=== PATIENT | male | born 1955 | race Two or more races ===

== ENCOUNTER 2019-11-16 01:25 | Inpatient (IN) | payer BC, OTHER ==
[~2019-11-16] VITALS: Ht 185.4 cm; Wt 75.7 kg
[2019-11-16] MEDS ORDERED: DOXE10CA2 PO (01:38)
[2019-11-16] MEDS ORDERED: DIAZ10TA4 PO (01:38)
[2019-11-16] MEDS ORDERED: DIPH1TAB PO (01:39)
[2019-11-16] MEDS ORDERED: TEMA30CA PO (01:40)
--- NOTE | 2019-11-16 01:43 | NUR ---
GUILLERMINA 5150 IS IN THE CHART.
--- NOTE | 2019-11-16 01:43 | NUR ---
PT BIB BY HIS SON WITH A C/O OF SI ATTEMPT. PT IS ON A 5150 HOLD OF 212911/15/2019. 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 PT STATED THAT HE TOOK 25 PILLS AND VODKA. ACCORDNING TO THE HOLD. PT HAS ATTEMPTED THIS BEFORE. 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 PT HAS BEEN RETIRED FOR SOME TIME. PT'S SON IS AT THE BEDSIDE. PT WAS CHANGED INTO A GOWN AND ALL PERSONAL BELONGINGS WERE PLACED IN BELONGING BAGS IN THE NURSE'S STATION. PT REC'D WARM BLANKETS AND APPEARS TO BE CALM AND COOPERATIVE. ASHLEIGH DOCKERY/JAVIER IS AT THE BEDSIDE.
--- NOTE | 2019-11-16 01:43 | NUR ---
URINE SAMPLE OBTAINED AND SENT TO LAB. GLAUCOMA SPECIALIST IS AT THE BEDSIDE AND IS DRAWING THE LABS.
--- NOTE | 2019-11-16 01:50 | NUR ---
EKG IN PROGRESS AT THE BEDSIDE.
[2019-11-16 01:54] LABS: BASOPHILS # (AUTO) 0.3 /CMM (0.0-0.2); BASOPHILS % (AUTO) 1.8 % (0.0-2.0); HEMATOCRIT 46 % (39-51); HEMOGLOBIN 15.2 g/dL (13.5-17.5); LYMPHOCYTES # (AUTO) 3.3 /CMM (0.8-4.8); LYMPHOCYTES % (AUTO) 23.2 % (20.0-44.0); MEAN CORPUSCULAR HGB CONC 33 g/dl (31.0-36.0); MEAN CORPUSCULAR VOLUME 93 fL (80-96); MONOCYTES # (AUTO) 1.3 /CMM (0.1-1.30); MONOCYTES % (AUTO) 9.2 % (2.0-12.0); NEUTROPHILS # (AUTO) 9.2 /CMM (1.8-8.9); NEUTROPHILS % (AUTO) 64.8 % (43.0-81.0); PLATELET COUNT (AUTO) 414 /CMM (150-450); RED BLOOD CELL COUNT(AUTO) 4.91 MIL/uL (4.5-6.0); WHITE BLOOD COUNT (AUTO) 14.2 K/uL (4.3-11.0)
--- NOTE | 2019-11-16 01:54 | NUR ---
PT REC'D A CUP OF WATER AND HAS A CHICKEN SANDWICH THAT HIS SON BROUGHT. PT IS TOLERATING PO WELL.
[2019-11-16 01:57] LABS: APPEARANCE,URINE Clear (CLEAR); BILIRUBIN,URINE SMALL (NEGATIVE); BLOOD, URINE Negative Ery/uL (NEGATIVE); COLOR,URINE Yellow (YELLOW); KETONES,URINE Negative (NEGATIVE); LEUKOCYTE ESTERASE ,URINE Negative (NEGATIVE); NITRITE, URINE Negative (NEGATIVE); PH,URINE 5.5 (5.0-8.0); PROTEIN,URINE 30 mg/dl (NEGATIVE); UGLUCOSE Negative (NEGATIVE); UROBILINOGEN,URINE 0.2 EU/dL (0.2)
[2019-11-16 02:01] LABS: CALCIUM, SERUM 8.5 mg/dL (8.5-10.1); CARBON DIOXIDE 26 mmol/L (21-32); CHLORIDE 108 mmol/L (98-107); CREATININE 2.9 mg/dL (0.6-1.3); GLUCOSE 103 mg/dL (74-106); POTASSIUM 4.2 mmol/L (3.5-5.1); SODIUM SERUM 146 mmol/L (136-145); UREA NITROGEN, BLOOD 41 mg/dL (7-18)
[2019-11-16] MEDS ORDERED: TEMA15CA PO (02:03)
[2019-11-16] MEDS ORDERED: OXYC-132 PO (02:03)
[2019-11-16] MEDS ORDERED: FLUO20CA42 PO (02:03)
[2019-11-16] MEDS ORDERED: DOCU-270 PO (02:03)
[2019-11-16] MEDS ORDERED: HYDR-500 PO (02:03)
[2019-11-16 02:07] LABS: ACETAMINOPHEN 0 ug/ml (10-30); ALANINE AMINOTRANSFERASE 15 U/L (12-78); ALBUMIN 3.8 g/dL (3.4-5.0); ALCOHOL, BLOOD < 3 mg/dL (0-0); ALKALINE PHOSPHATASE 52 U/L (46-116); ASPARTATE AMINOTRANSFERASE 32 U/L (15-37); BILIRUBIN,DIRECT 0.2 mg/dL (0.0-0.2); BILIRUBIN,TOTAL 0.8 mg/dL (0.2-1.0); SALICYLATE 6.2 mg/dL (2.8-20.0); TOTAL PROTEIN, SERUM 8.1 g/dL (6.4-8.2)
[2019-11-16 02:15] LABS: BACTERIA,URINE Few /HPF (None Seen); RBC,URINE 0-2 /HPF (0-2); SQUAMOUS EPITHELIAL CELL,UR Few /HPF (None Seen)
--- NOTE | 2019-11-16 02:28 | NUR ---
CALLED [facility] RE: CXR READ. SYSTEM IS DOWN FOR ANOTHER 10 MINS AND THEN THEY WILL BE ABLE TO UPLOAD THE CXR TO THE HOTLINE. NOTIFIED.
--- NOTE | 2019-11-16 02:30 | NUR ---
DR ESPARZA IS AT THE BEDSIDE SPEAKING TO THE PT AND HIS SON.
--- NOTE | 2019-11-16 02:50 | NUR ---
CALLING REPORT TO TRACEE LUND RN. ANDERSON TAVERA
--- NOTE | 2019-11-16 02:51 | NUR ---
REPORT TO ANDERSON CHARLES
[2019-11-16] MEDS ORDERED: ACETAMINOPHEN 325 MG TABLET PO PRN (04:00)
[2019-11-16] MEDS ORDERED: TEMAZEPAM 7.5 MG CAPSULE PO PRN (04:00)
[2019-11-16] MEDS ORDERED: MAG HYDROX/AL HYDROX/SIMETH 30 ML UDC PO PRN (04:00)
[2019-11-16] MEDS ORDERED: BLOOD SUGAR DIAGNOSTIC 1 EACH STRIP IN ONE (04:00)
[2019-11-16] MEDS ORDERED: MAGNESIUM HYDROXIDE 30 ML UDC PO PRN (04:00)
[2019-11-16 04:07] VITALS: BP 130/66
--- NOTE | 2019-11-16 04:56 | NUR ---
GPS SENIOR DATA MODELER NOTES: ADMITTED 64 Y/O MALE. PT ADMITTED FROM ER UNIT TO GPS UNIT ON A 5150. PER HOLD PT CONFESSED TO HAVE ATTEMPTED SUICIDE LAST NIGHT BY TAKING 25 PILLS OF TEMAZEPAM WITH A PINT OF VODKA. EX FOUND A BOTTLE OF VODKA AND MEDICATION EMPTY BOTTLE. A RELAPSE OF 15 YEARS. UPON FACE TO FACE ASSESSMENT PT IS A/ O X3-4, COOPERATIVE, ANXIOUS, COMPLIANT, SARCASTIC, BLUNT, DEPRESSED, RESERVED, GUARDED, AND IN DENIAL . PT STATED, " IM HERE BECAUSE I COULDN'T SLEEP. ITS INSOMNIA. " PT ELAINE SI AND HI AT THIS TIME. PT SIGNED ALL CONSENT PAPERS. ENVIRONMENTAL SAFETY CHECK Q15MIN. ENCOURAGE PT TO VERBALIZE FEELINGS AND CONCERNS. ORIENTED TO THE UNIT. BELONGING AND CONTRABAND WERE DONE AND CHECKED. NURSING ASSESSMENT DONE. ABLE TO ASSESS PT BODY AND SKIN WITH NOTED SACRAL REDNESS AND FOREHEAD REDNESS. PHOTO TAKEN AND WOUND CONSULT ORDERED. TOOK PICTURE OF PT FACE FOR IDENTIFICATION AND PUT IN CHART. PT RIGHTS DISCUSS BY SUPERVISOR BEATER ROOM. PROVIDED PT WITH HANDBOOK AND MED GUIDE. TOOK PTS INITIAL BLOOD SUGAR. VITALS TAKEN ANS WNL. NO S/S OF RESP DISTRESS. BREATHING EVEN AND UNLABORED. CONTINUE TO MONITOR.
--- NOTE | 2019-11-16 05:31 | NUR ---
GPS RN NOTES: REFUSED NICOTINE PATCH ORDER ASKED PT IF HE HAS SMOKED. PT STATED, "YES". OFFERED PT NICOTINE PATCH ORDER FOR SMOKING CESSATION. PT REFUSED ORDER. PT STATED, "I WANT TO TRY NOT SMOKING MYSELF FOR NOW. " EXPLAINED RISKS AND BENEFITS. PT STILL REFUSED X3. CONTINUE TO MONITOR.
--- NOTE | 2019-11-16 06:24 | NUR ---
GPS RN NOTES: SON NO ANSWER CALLED PT SON VITOR TO . NO ANSWER AND VOICE MAIL IS FULL TO LEAVE MESSAGE. WILL ENDORSE TO DAY SHIFT TO F/U. CONTINUE TO MONITOR.
--- NOTE | 2019-11-16 06:35 | NUR ---
GPS RN NOTES: INFORMED DR OF ADMISSION NOTIFIED DR VILLAFANA REGARDING PTS ADMISSION. INFORMING IF TO CONTINUE STANDING ORDERS. PER , TO HOLD TEMAZEPAM UNTIL HE ASSESS PT. WILL ENDORSE TO DAY SHIFT FOR MED RECONCILIATION. CONTINUE TO MONITOR.
[2019-11-16 08:00] VITALS: BP 157/99
[2019-11-16] MEDS ORDERED: DOCUSATE SODIUM 100 MG CAPSULE PO PRN (09:00)
[2019-11-16] MEDS ORDERED: DIPHENOXYLATE HCL/ATROP SULF 1 UDTAB TABLET PO PRN (09:00)
[2019-11-16] MEDS: NICOTINE PATCH (14MG) 14 MG PATCH.TD24 TD SCH (10:00)
[2019-11-16] MEDS: oxyCODONE/APAP (5/325 MG) 1 UDTAB TABLET PO PRN ×2 (10:00→20:33)
--- NOTE | 2019-11-16 10:01 | NUR ---
GPS/RN-NOTES PATIENT C/O 02/14 LEFT AND RIGHT HIP. PERCOCET 5/325MG 1 TAB. P.O GIVEN PRN ORDER. WILL CONT. MONITORING FOR SAFETY .
--- NOTE | 2019-11-16 10:30 | NUR ---
GPS/RN-NOTES PATIENT SLEEPING IN BED EASILY AROUSE, NO ACUTE DISTRESS NOTED.
--- NOTE | 2019-11-16 10:54 | NUR ---
WOUND CARE CONSULT: PT PRESENTS CONTINENT AND INDEPENDENT WITH BED MOBILITY. PT NOTED TO HAVE INNER BUTTOCKS RASH, PRESENT ON ADMISSION. PT STATES PREVIOUSLY HAD DIARRHEA AND WAS NOT BATHING PROPERLY. RECOMMENDATIONS MADE FOR SKIN CARE AND PROTECTION. DISCUSSED WITH NURSING STAFF. WILL SEE PRN. NOWAK IN AGREEMENT WITH PLAN OF CARE.
[2019-11-16] MEDS ORDERED: Z GUARD REMEDY 2 OZ OINT TP SCH (11:30)
[2019-11-16] MEDS ORDERED: Z GUARD REMEDY 2 OZ OINT TP PRN (11:30)
[2019-11-16] MEDS: SERTRALINE HCL 50 MG TABLET PO SCH (14:35)
--- NOTE | 2019-11-16 15:43 | NUR ---
GROUP NOTE: Pt was present in group discussing the topic of "decision-making." S: "I fucked up I took some pills when I was blacked out while I was drunk and sent a text to my ex-, she called the convalescent sitter and here I am. The next time I will break my phone so I don't send stupid stuff. I'm just an angry man and I drink because I am depressed because of my living situation. I'm a 64 year old man who lives in a garage that's pathetic." O: Pt has angry mood with congruent affect. Pt maintained appropriate eye contact and respected the group setting. Pt waited his turn to speak and offered advise to other pts. A: Pt is aware of the negative effects drinking has caused. However, he does not express wanting to stop and does not have a plan to better his living situation. Pt is in denial and states he does not need to be in a mental hospital. P: SW will continue to provide insight and assign self-monitoring techniques to assist with his triggers.
[2019-11-16 16:00] VITALS: BP 131/98
--- NOTE | 2019-11-16 16:15 | NUR ---
INITIAL DISCHARGE PLAN: Pt wishes to return home to [address] [place] [address]. SW will help form a safe and proper discharge in collaboration with .
[2019-11-16] MEDS: CLOTRIMAZOLE 1% 15 GM TUBE TP SCH (17:24)
--- NOTE | 2019-11-16 18:58 | NUR ---
GPS /RN-NOTES PATIENT LAYING IN BED CALM NO ACUTE DISTRESS NOTED. REFUSED SHOWER TODAY DESPITE ENCOURAGEMENT. STATED" I'M NOT READY YET MAYBE LATER". WILL ENDORSE TO INCOMING SHIFT FOR CONTINUITY OF CARE.
[2019-11-16 20:00] VITALS: BP 143/78
--- NOTE | 2019-11-16 20:34 | NUR ---
GPS RN NOTES: C/O OF LEFT HIP PAIN PT C/O OF LEFT HIP PAIN 8 OT OF 10. PT REQUESTED PAIN MEDICATION. CHECKED VITALS WNL. OFFERED PERCOCET (5/325) 1TAB PRN ORDERED. PT AGREED AND TOLERATED MEDICATION WELL. CONTINUE TO MONITOR.
[2019-11-16] MEDS: clonazePAM 0.5 MG TABLET PO PRN (22:53)
--- NOTE | 2019-11-16 22:55 | NUR ---
GPS RN nOTES: ANXIOUS PT C/O FEELING ANXIOUS. CHECKED VITALS WNL. BREATHING EVEN AND UNLABORED. NO S/S OF SOB. NO S/S OF RESP DISTRESS. OFFERED KLONOPIN 0.5MG PO PRN ORDERED. PT AGREED AND TOLERATED MEDICATION WELL. CONTINUE TO MONITOR.
[2019-11-17 06:24] LABS: BASOPHILS # (AUTO) 0.1 /CMM (0.0-0.2); BASOPHILS % (AUTO) 1.7 % (0.0-2.0); EOSINOPHILS % (AUTO) 4.9 % (0.0-6.0); HEMATOCRIT 40 % (39-51); HEMOGLOBIN 13.5 g/dL (13.5-17.5); LYMPHOCYTES # (AUTO) 2.7 /CMM (0.8-4.8); MEAN CORPUSCULAR HGB CONC 34 g/dl (31.0-36.0); MEAN CORPUSCULAR VOLUME 93 fL (80-96); MONOCYTES # (AUTO) 0.8 /CMM (0.1-1.30); MONOCYTES % (AUTO) 10.2 % (2.0-12.0); NEUTROPHILS # (AUTO) 3.5 /CMM (1.8-8.9); NEUTROPHILS % (AUTO) 47.2 % (43.0-81.0); PLATELET COUNT (AUTO) 327 /CMM (150-450); RED BLOOD CELL COUNT(AUTO) 4.33 MIL/uL (4.5-6.0); WHITE BLOOD COUNT (AUTO) 7.4 K/uL (4.3-11.0)
[2019-11-17 06:58] LABS: ALBUMIN 2.8 g/dL (3.4-5.0); BILIRUBIN,TOTAL 0.6 mg/dL (0.2-1.0); CALCIUM, SERUM 8.6 mg/dL (8.5-10.1); CREATININE 1.6 mg/dL (0.6-1.3); MAGNESIUM 1.8 mg/dL (1.8-2.4); POTASSIUM 4.3 mmol/L (3.5-5.1); TOTAL PROTEIN, SERUM 6.3 g/dL (6.4-8.2)
[2019-11-17 08:00] VITALS: BP 131/97
[2019-11-17] MEDS: NICOTINE PATCH (14MG) 14 MG PATCH.TD24 TD SCH (08:33)
[2019-11-17] MEDS: SERTRALINE HCL 50 MG TABLET PO SCH (08:33)
--- NOTE | 2019-11-17 09:05 | NUR ---
UR NOTE: GIVEN AUTH#: [id number] FOR 5 DAYS (11/15 TO 11/19) W/ REVIEW ON THE . SEMICONDUCTOR WAFER INSPECTOR ASSIGNED IS MARIALUISA SHERIFF ext [phone] .
--- NOTE | 2019-11-17 09:29 | NUR ---
UR NOTE: GURJIT faxed H&P and medication list to ROAD HOGGER OPERATOR ASSIGNED MARIALUISA SHERIFF from [employer] ext [phone] .
[2019-11-17] MEDS: CLOTRIMAZOLE 1% 15 GM TUBE TP SCH ×2 (10:25→17:32)
[2019-11-17] MEDS: Z GUARD REMEDY 2 OZ OINT TP SCH (10:25)
[2019-11-17] MEDS: oxyCODONE/APAP (5/325 MG) 1 UDTAB TABLET PO PRN ×2 (10:58→22:01)
--- NOTE | 2019-11-17 10:58 | NUR ---
GPS/RN-NOTES PATIENT C/O 02/14 LEFT AND RIGHT HIP. REQUESTING FOR PERCOCET. PERCOCET 5/325MG 1 TAB. P.O GIVEN PRN ORDER. WILL CONT. MONITORING FOR SAFETY .
[2019-11-17 16:00] VITALS: BP 119/83
[2019-11-17] MEDS: clonazePAM 0.5 MG TABLET PO PRN (18:18)
--- NOTE | 2019-11-17 18:19 | NUR ---
GPS/RN-NOTES PATIENT REQUESTING ANXIETY MEDICATION. KLONOPIN 0.5MG P.O GIVEN PRN ORDER. WILL CONT. MONITORING FOR SAFETY AND BEHAVIOR.
--- NOTE | 2019-11-17 19:14 | NUR ---
GPS/RN-NOTES PATIENT IN THE HALLWAY TALKING TO THE SON,CALM,NO ACUTE DISTRESS NOTED. ENDORSE TO INCOMING NURSE FOR CONTINUITY OF CARE.
[2019-11-17 20:00] VITALS: BP 136/90
--- NOTE | 2019-11-17 23:11 | NUR ---
GPS RN NOTE RECEIVED PATIENT IN HALLWAY, AWAKE, ALERT AND ORIENTED X3, CHATTING WITH VISITING SON. CALM AND COOPERATIVE, MEDICATION COMPLIANT. PT COMPLAINED OF LEFT HIP PAIN OF 8/10. OXYCODONE 5/325MG 1 TAB GIVEN PO ORDERED. NO S/S OF ANY DISTRESS AT THIS TIME. PT BREATHING IS EVEN,UNLABORED WITH EQUAL RISE AND FALL OF THE CHEST. ON ROOM AIR WITH SPO2 OF 94%. NO COMPLAINS OF PAIN. PT IS MEDICATION COMPLIANT. SAFETY CHECKS DONE. FALL PRECAUTION CONTINUED. BED ALARM ON. BED IN LOW LOCKED POSITION. CALL LIGHT WITHIN REACH. OFFERED SNACKS AND FLUID TOLERATED. ON REASSESSMENT, PT RATED PAIN 0/10. WILL CONTINUE TO MONITOR Q15MIN FOR MOOD, SAFETY AND BEHAVIOR.
[2019-11-18 06:08] LABS: PTH, INTACT 20 pg/mL (15-65)
[2019-11-18] MEDS: clonazePAM 0.5 MG TABLET PO PRN ×2 (06:14→21:45)
--- NOTE | 2019-11-18 06:15 | NUR ---
GPS RN NOTE PT WOKE THIS MORNING COMPLAINING OF ANXIETY. KLONOPIN 0.5MG 1 TAB GIVEN PO ORDERED. WILL CONTINUE TO MONITOR AND ENDORSE TO AM SHIFT.
[2019-11-18 08:00] VITALS: BP 140/79
[2019-11-18] MEDS: NICOTINE PATCH (14MG) 14 MG PATCH.TD24 TD SCH (08:19)
[2019-11-18] MEDS: SERTRALINE HCL 50 MG TABLET PO SCH (08:19)
[2019-11-18] MEDS: CLOTRIMAZOLE 1% 15 GM TUBE TP SCH ×2 (08:19→16:08)
[2019-11-18] MEDS: Z GUARD REMEDY 2 OZ OINT TP SCH (08:20)
--- NOTE | 2019-11-18 09:57 | NUR ---
Dr. Leon as the emergency medical technician basic of the unit gave an order for denial of right to do room search to look for the missing shower head with the hose. Staffs made a thorough search and the thing that we are looking is not in the room.
[2019-11-18 10:07] LABS: *SPE A/G RATIO 1.1 (0.7-1.7); *SPE ALBUMIN 3.2 g/dL (2.9-4.4); *SPE ALPHA-1-GLOBULIN 0.2 g/dL (0.0-0.4); *SPE ALPHA-2-GLOBULIN 0.8 g/dL (0.4-1.0); *SPE GLOBULIN, TOTAL 2.8 g/dL (2.2-3.9); *SPE M-SPIKE Not Observed g/dL (Not Observed); *SPEGAMMA GLOBULIN 0.9 g/dL (0.4-1.8)
[2019-11-18] MEDS: oxyCODONE/APAP (5/325 MG) 1 UDTAB TABLET PO PRN ×2 (10:11→18:49)
--- NOTE | 2019-11-18 10:12 | NUR ---
RN NOTES/PAIN MANAGEMENT PT C/O ACHING, DULL AND SHARP PAIN ON HIS LEFT HIP WHEN AMBULATING WITH SCALE OF 8/10. PRN PERCOCET 5/ 535 MG PO GIVEN AT 1011. WILL CONTINUE TO MONITOR.
--- NOTE | 2019-11-18 14:05 | NUR ---
FAMILY CONTACT: SW received a call from pts son Pankaj [phone] to request alternative living options for pt. He sates that he wishes for pt to live closer to him and also states that pt wishes to go to a sober living but son wishes for pt to go to an independent living type home. SW stated that she will speak to pt regarding his current living situation and provide options if pt is receptive to it. Son agreed.
--- NOTE | 2019-11-18 14:26 | NUR ---
INDIVIDUAL MEETING: SW met with pt and discussed his current living situation and alternative housing options. Pt states that he wants to return to the [place] address listed on the face sheet and states that he will be there until the end of the month as he has already paid rent for his month. He also states that after that he will be transitioning into a sober living home. Pt declined alternative housing options.
[2019-11-18 16:01] VITALS: BP 134/80
--- NOTE | 2019-11-18 18:58 | NUR ---
RN NOTES/PAIN MANAGEMENT PT C/O ACHING, DULL AND SHARP PAIN ON HIS LEFT HIP AFTER AMBULATING WITH SCALE OF 8/10. PRN PERCOCET 5/ 535 MG PO GIVEN AT 1849. WILL CONTINUE TO MONITOR AND REASSESS PT.
[2019-11-18 20:30] VITALS: BP_SYST 130; BP_SYST 158; BP_DIAS 100; BP_DIAS 77
--- NOTE | 2019-11-18 21:48 | NUR ---
GPS RN NOTE PT COMPLAINED OF ANXIETY, KLONOPIN 0.5MG 1 TAB GIVEN PO ORDERED AT 2146. WILL CONTINUE TO MONITOR AND REASSESS
[2019-11-19 08:00] VITALS: BP 162/93
[2019-11-19] MEDS: oxyCODONE/APAP (5/325 MG) 1 UDTAB TABLET PO PRN ×2 (08:54→15:11)
--- NOTE | 2019-11-19 08:54 | NUR ---
MEDICATED FOR LT. HIP PAIN WITH PERCOCET.
[2019-11-19] MEDS: Z GUARD REMEDY 2 OZ OINT TP SCH (09:43)
[2019-11-19] MEDS: CLOTRIMAZOLE 1% 15 GM TUBE TP SCH ×2 (09:43→17:00)
[2019-11-19] MEDS: SERTRALINE HCL 50 MG TABLET PO SCH (09:44)
[2019-11-19] MEDS: NICOTINE PATCH (14MG) 14 MG PATCH.TD24 TD SCH (10:35)
[2019-11-19] MEDS: clonazePAM 0.5 MG TABLET PO PRN ×2 (10:35→21:18)
--- NOTE | 2019-11-19 10:35 | NUR ---
MEDICATED WITH CLONOPIN FOR NERVOUSNESS.
--- NOTE | 2019-11-19 15:11 | NUR ---
MED. FOR LT. HIP PAIN WITH PERCOCET.TAB 1 PO.
[2019-11-19 16:00] VITALS: BP 137/81
--- NOTE | 2019-11-19 17:00 | NUR ---
URINE SENT PER ORDERS.
--- NOTE | 2019-11-19 17:15 | NUR ---
RN-CO: LELO ADLER TOOK PATIENT'S MOBILE PHONE WITH HIS PERMISSION. WITNESSED BY STAFF.
--- NOTE | 2019-11-19 18:26 | NUR ---
SON IN TO MANAGER PLAN PT'S CELLPHONE TO GET PHONE # OUT AND PLANS TO BRING PHONE BACK TONOC.
--- NOTE | 2019-11-19 19:58 | NUR ---
GPS/RN OPENING NOTES RECEIVED PATIENT SITTING IN BED WITH SON. ALERT, ORIENTED X3, ABLE TO DISCUSS NEEDS. RESPIRATIONS EVEN AND UNLABORED, MONITORING FOR ANY CHANGES OF BEHAVIOR, ABLE TO WALK , BED LOCKED, CALL LIGHTS WITHIN REACH. WILL MONITOR.
[2019-11-19 20:00] VITALS: BP 151/66
[2019-11-19 20:55] VITALS: BP 153/93
--- NOTE | 2019-11-19 22:01 | NUR ---
GPS/RN NOTES PATIENT REQUESTED KLONOPIN 0.5 MG PO AT BEDTIME. AWAKE, ALERT AND ABLE TO VERBALIZE NEEDS TO HELP HIM CALM DOWN.
[2019-11-20] MEDS: oxyCODONE/APAP (5/325 MG) 1 UDTAB TABLET PO PRN ×2 (06:55→16:29)
--- NOTE | 2019-11-20 07:07 | NUR ---
GPS/RN NOTES PATIENT REPORTED NO BM FOR THE PAST TWO DAYS REQUESTING FOR COLACE NEEDED.
[2019-11-20 07:45] LABS: BASOPHILS % (AUTO) 0.5 % (0.0-2.0); EOSINOPHILS % (AUTO) 2.6 % (0.0-6.0); HEMATOCRIT 46 % (39-51); HEMOGLOBIN 15.7 g/dL (13.5-17.5); LYMPHOCYTES # (AUTO) 2.3 /CMM (0.8-4.8); LYMPHOCYTES % (AUTO) 25.2 % (20.0-44.0); MEAN CORPUSCULAR HGB CONC 34 g/dl (31.0-36.0); MEAN CORPUSCULAR VOLUME 92 fL (80-96); MONOCYTES # (AUTO) 0.7 /CMM (0.1-1.30); MONOCYTES % (AUTO) 7.5 % (2.0-12.0); NEUTROPHILS # (AUTO) 5.8 /CMM (1.8-8.9); NEUTROPHILS % (AUTO) 64.2 % (43.0-81.0); PLATELET COUNT (AUTO) 369 /CMM (150-450); RED BLOOD CELL COUNT(AUTO) 5.01 MIL/uL (4.5-6.0)
[2019-11-20 08:00] VITALS: BP 119/80
[2019-11-20 08:03] LABS: CALCIUM, SERUM 9.6 mg/dL (8.5-10.1); CREATININE 1.5 mg/dL (0.6-1.3); MAGNESIUM 1.9 mg/dL (1.8-2.4); PHOSPHORUS 3.7 mg/dL (2.5-4.9); POTASSIUM 4.6 mmol/L (3.5-5.1)
[2019-11-20] MEDS: SERTRALINE HCL 50 MG TABLET PO SCH (08:29)
[2019-11-20] MEDS: NICOTINE PATCH (14MG) 14 MG PATCH.TD24 TD SCH (08:48)
[2019-11-20] MEDS: CLOTRIMAZOLE 1% 15 GM TUBE TP SCH ×2 (08:48→16:31)
[2019-11-20] MEDS: Z GUARD REMEDY 2 OZ OINT TP SCH (08:56)
[2019-11-20 11:32] LABS: APPEARANCE,URINE CLEAR (CLEAR); BILIRUBIN,URINE NEGATIVE (NEGATIVE); BLOOD, URINE NEGATIVE Ery/uL (NEGATIVE); COLOR,URINE YELLOW (YELLOW); KETONES,URINE NEGATIVE (NEGATIVE); LEUKOCYTE ESTERASE ,URINE NEGATIVE (NEGATIVE); NITRITE, URINE NEGATIVE (NEGATIVE); PROTEIN,URINE NEGATIVE (NEGATIVE); UGLUCOSE NEGATIVE (NEGATIVE); UROBILINOGEN,URINE 0.2 EU/dL (0.2)
[2019-11-20 12:13] LABS: CREATININE, URINE 101.8 MG/DL (30.0-125.0); URINE TOTAL PROTEIN 11.8 mg/dL (0-11.9)
[2019-11-20 12:23] LABS: EOSINOPHIL,URINE None Seen
[2019-11-20] MEDS: clonazePAM 0.5 MG TABLET PO PRN ×2 (12:31→20:39)
--- NOTE | 2019-11-20 12:31 | NUR ---
GPS/RN NOTES PATIENT REQUESTED KLONOPIN 0.5 MG PO MEDICATION GIVEN PER ORDER WILL CONTINUE MONITORING.
[2019-11-20 16:00] VITALS: BP 122/76
--- NOTE | 2019-11-20 16:30 | NUR ---
RN NOTES PT C/O LEFT HIP PAIN 03/16. PRN PERCOCET 5/ 535 MG PO GIVEN WILL CONTINUE TO MONITOR AND REASSESS PT.
[2019-11-20 20:26] VITALS: BP 100/78
--- NOTE | 2019-11-20 20:41 | NUR ---
Pt c/o anxiety. Least restrictive measures ineffective. Klonopin 0.5 mg po given as ordered. Will continue to monitor.
--- NOTE | 2019-11-20 21:53 | NUR ---
Post 1 hour Klonopin effective. Pt is calm in bed. Will continue to monitor.
[2019-11-21] MEDS: oxyCODONE/APAP (5/325 MG) 1 UDTAB TABLET PO PRN ×3 (06:28→14:12)
--- NOTE | 2019-11-21 06:30 | NUR ---
Pt c/o pain to Left hip 04/16. Percocet 5/325 mg po given as ordered. Will continue to monitor.
[2019-11-21 08:00] VITALS: BP 112/89
[2019-11-21] MEDS: Z GUARD REMEDY 2 OZ OINT TP SCH (08:20)
[2019-11-21] MEDS: NICOTINE PATCH (14MG) 14 MG PATCH.TD24 TD SCH (08:20)
[2019-11-21] MEDS: CLOTRIMAZOLE 1% 15 GM TUBE TP SCH (08:20)
[2019-11-21] MEDS: SERTRALINE HCL 50 MG TABLET PO SCH (08:21)
--- NOTE | 2019-11-21 08:32 | NUR ---
UR NOTE: GURJIT faxed clinicals to AUTO BODY TECHNICIAN ASSIGNED MARIALUISA SHERIFF from [employer] ext [phone] for review.
[2019-11-21] MEDS: clonazePAM 0.5 MG TABLET PO PRN (09:42)
--- NOTE | 2019-11-21 09:42 | NUR ---
RN NOTE: PT C/O INCREASING AGITATION AND ANXIETY AFTER DISCUSSING REASON FOR HOSPITALIZATION WITH STAFF. PT REQUESTING KLONOPIN PRN. KLONOPIN 0.5 MG PRN ADMINISTERED.
--- NOTE | 2019-11-21 09:42 | NUR ---
FAMILY CONTACT: GURJIT contacted pts son Pankaj [phone] to inform him pt will be discharged on this present day. He states that he will pick pt up at 3:00pm and transport him back home.
--- NOTE | 2019-11-21 10:03 | NUR ---
DISCHARGE NOTE: Pt will be discharged at 3:00pm via private vehicle home to [address] [place] [address]. Pts son Pankaj [phone] will be picking pt up and transporting home. Pts mood is anxious with congruent affect. Pt denied visual/auditory hallucinations and denied suicidal/homicidal ideation. Pt will attend an Alcoholics Anonymous meeting Address: [address] [place] [address] on this present day at 7:00pm. Pt will present to [facility] Address: [address] [place] [address] on Thursday11/22/19 at 9:00am for an intake. Pt was also provided a referral to [facility] Address: [address], [place] [address] . For smoking cessation, patient was referred to the [employer] and [employer] [id number]. Pt will also participate in a telephone meeting with [employer] [phone] on ThursdayNovember 22 at 8:00am. The multidisciplinary exit care form was done, printed, signed, and given to the patient.
--- NOTE | 2019-11-21 10:23 | NUR ---
RN-CO:DR VILLAFANA GAVE AN ORDER TO DISCONTINUE HOLD AND DISCHARGE PATIENT HOME, NOTED.
--- NOTE | 2019-11-21 14:12 | NUR ---
RN NOTE: PT C/O 04/16 LEFT HIP PAIN. REQUESTING PERCOCET. PERCOCET PO PRN GIVEN.
--- NOTE | 2019-11-21 15:40 | NUR ---
HOSPITAL TECHNICIAN NOTE: 64 YEAR OLD MALE DISCHARGED HOME WITH SON, VITOR, IN STABLE CONDITION PT COMPLIANT WITH MEDICATIONS, COOPERATIVE WITH TREATMENT PLANS. PATIENT DENIES SI/HI AND INSTRUCTED TO GO TO THE CLOSEST ER IF DEVELOPING SI/HI. BEHAVIOR IMPROVED, PSYCHIATRIC TREATMENT PLANS MET, MEDICAL TREATMENT PLANS DEFERRED FOR CONTINUAL MONITORING. EDUCATED PT ABOUT AFTER CARE AND COPY PROVIDED. RETURNED PERSONAL BELONGINGS TO PATIENT. MEDICATIONS RECONCILED WITH DR. MICHAEL AND DR. CAMPA. PT SIGNED DISCHARGE PAPERWORK. PT REFUSED DISCHARGE SKIN PHOTOS. ARM BAND REMOVED. PT LEFT THE UNIT AT 1540 WITH SON VIA AMBULATION TO PERSONAL VEHICLE.
--- NOTE | 2019-11-23 08:34 | NUR ---
UR NOTE: SW contacted ORACLE DATABASE ANALYST ASSIGNED IS MARIALUISA SHERIFF ext [phone] at [employer] and left a voicemail with discharge information.
== END 2019-11-21 15:45 | disposition home or self-care (01) | DRG 885 ==
LOC: ER 01:25 → GPS 02:16
PROVIDERS: ADMIT Psychiatry & Neurology Psychiatry; ATTEND Family Medicine
DX: F33.2 Major depressive disorder, recurrent severe without psychotic features (principal); N17.0 Acute kidney failure with tubular necrosis; N18.9 Chronic kidney disease, unspecified; E44.0 Moderate protein-calorie malnutrition; R45.851 Suicidal ideations; F29 Unspecified psychosis not due to a substance or known physiological condition; J44.9 Chronic obstructive pulmonary disease, unspecified; F17.210 Nicotine dependence, cigarettes, uncomplicated; E88.09 Other disorders of plasma-protein metabolism, not elsewhere classified; G89.29 Other chronic pain; M19.90 Unspecified osteoarthritis, unspecified site; Y90.0 Blood alcohol level of less than 20 mg/100 ml; F10.20 Alcohol dependence, uncomplicated; Z68.22 Body mass index [BMI] 22.0-22.9, adult; Z73.6 Limitation of activities due to disability
CPT/HCPCS: 36415; 71045-TC; 80048-TC; 80053-TC; 80061-TC; 80076-TC; 80305; 81000-TC; 82550-TC; 82570-TC; 82962-TC; 83735-TC; 83970; 84100-TC; 84155; 84155-TC; 84165; 84300-TC; 85025-TC; 87081-TC; 87086-TC; G0480